=== PATIENT | female | born 1970 | race Caucasian/White ===

== ENCOUNTER 2018-05-04 20:53 | Inpatient (IN) | payer SELFPAY ==
[2018-05-04] MEDS ORDERED: ALPRAZolam 0.25 MG TAB PO ONE (21:11)
[2018-05-04] MEDS ORDERED: ONDANSETRON ODT 8 MG TAB SL ONE (21:12)
[2018-05-04] MEDS ORDERED: POTASSIUM CHLORIDE ELIXIR 20 MEQ/15 ML UD PO ONE (21:35)
[2018-05-04] MEDS ORDERED: KCL 40MEQ/NS 1,000 ML IVS ONE (21:36)
[2018-05-04] MEDS ORDERED: CYPROHEPTADINE HCL TAB 4 MG PO ONE (21:48)
--- NOTE | 2018-05-04 21:54 | RAD ---
ABDOMINAL SERIES WITH CHEST. 05/04/2018 CLINICAL HISTORY: Nausea and vomiting COMPARISON: None. TECHNIQUE: PA chest and two AP images of the abdomen. FINDINGS: Chest: Normal cardiac size. Normal cardiomediastinal contours. Normal pulmonary vascularity. Lungs are clear. Pleural spaces are clear. Unremarkable bony structures and soft tissues. ABDOMEN: There is scattered stool and air throughout the colon. There is no abnormal bowel dilatation to suggest ileus or obstruction. No free air. Surgical sutures in the right abdomen noted. Solid visceral organ shadows appear normal. Unremarkable bony structures. Pelvic phleboliths noted. IMPRESSION: 1. No acute chest disease. 2. No acute abdominal finding. Postoperative changes. Electronically signed by: Ros Raymundo DO 05/04/2018 9:51 PM [facility]
[2018-05-04] MEDS ORDERED: MAGNESIUM SULFATE PREMIX 2GM 2 GM in PREMIX BAG 1 BAG IVPB ONE (21:59)
[2018-05-04] MEDS ORDERED: MAGNESIUM SULFATE PREMIX 2GM 50 ML IVPB ONE (22:12)
--- NOTE | 2018-05-04 23:15 | ED.PDOC ---
History of Present Illness - General Chief Complaint: General Stated Complaint: weakness, dizzy, n/v Time Seen by Provider: 05/04/18 20:56 Source: patient Exam Limitations: no limitations - History of Present Illness Initial Comments: The patient is a 47-year-old female presenting to the emergency room secondary to one to 2 hours of intermittent nausea vomiting along with associated bilateral lower extremity cramping and tremulousness. She is mildly hyperreflexive in her lower extremities. No falls. No injuries. The patient does take omeprazole and Prozac and had a small bowel resection for volvulus 3-4 months ago. She denies any other [id number] medication use aside from something along the lines of NyQuil for sleep. She denies eating disorders or chronic laxative abuse or diarrhea. No real nausea or vomiting prior to this. No chest pain or shortness of breath. No palpitations. She denies any history of any recurrent electrolyte disorders. Apparently her primary care doctor has recently found some anemia which is currently being worked up. Timing/Duration: 1-3 hours Severity: moderate Improving Factors: nothing Worsening Factors: nothing Associated Symptoms: malaise, nausea/vomiting Allergies/Adverse Reactions: Allergies Sulfa Antibiotics Allergy (Verified 05/04/18 21:03) Home Medications: Ambulatory Orders Fluoxetine HCl [Prozac] 40 mg PO DAILY 05/04/18 Omeprazole [Prilosec Cap] 20 mg PO DAILY 05/04/18 Probiotic Product [Probiotic] 1 tab PO DAILY 05/04/18 Review of Systems - Review of Systems Constitutional: States: no symptoms reported EENTM: States: no symptoms reported Respiratory: States: no symptoms reported Cardiology: States: no symptoms reported Gastrointestinal/Abdominal: States: nausea, vomiting - 2 only Genitourinary: States: no symptoms reported Musculoskeletal: States: muscle pain Skin: States: no symptoms reported Neurological: States: tremors Endocrine: States: no symptoms reported All other Systems: No Change from Baseline Past Medical History (General) - Patient Medical History Hx of COPD: No Hx Cardiac Disorders: No Hx Congestive Heart Failure: No Hx Pacemaker: No Hx Diabetes: No Hx Gastroesophageal Reflux: No Hx Cancer: No Hx Hepatitis C: No Surgical History: appendectomy - Vaccination History Hx Tetanus, Diphtheria Vaccination: No Hx Influenza Vaccination: No Hx Pneumococcal Vaccination: No Immunizations Up to Date: No - Social History Hx Alcohol Use: No Hx Substance Use: No Hx Substance Use Treatment: No Hx Depression: Yes - Female History Patient is a Female of Child Bearing Age (10 -59 yrs old): Yes Family Medical History - Family History Mother Living Status: Still Living Hx Family Hypertension: Yes Physical Exam - Physical Exam General Appearance: Alert, Anxious Eye Exam: bilateral normal Ears, Nose, Throat: hearing grossly normal, normal ENT inspection, normal pharynx Neck: full range of motion, supple Respiratory: lungs clear, normal breath sounds, no respiratory distress, no accessory muscle use Cardiovascular/Chest: normal peripheral pulses, regular rate, rhythm, no edema Peripheral Pulses: radial,right: 2+, radial,left: 2+, dorsalis pedis,right: 2+, dorsalis pedis,left: 2+ Gastrointestinal/Abdominal: non tender, soft Rectal Exam: deferred Back Exam: no CVA tenderness, no vertebral tenderness Extremity: normal range of motion, no pedal edema, normal capillary refill 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 Increase clonus. Increased deep tendon reflexes lower extremities. Skin Exam: normal color Comments: Vital Signs - 24 hr 05/04/18 05/04/18 05/04/18 20:56 21:56 22:34 Temperature 97.3 F L Pulse Rate [ 94 H 88 86 monitor] Respiratory 20 16 18 Rate Blood Pressure 160/96 134/92 142/85 [RA] O2 Sat by Pulse 99 98 96 Oximetry Progress - Progress Progress: 05/04/18 23:18 the patient's a 47-year-old female presented to the emergency room secondary to a couple of episodes of nausea and vomiting with some associated tremor and muscle cramping of the lower extremities that started just a couple of hours prior to arrival. Workup has demonstrated her chronic anemia which was already known about as well as some hyponatremia hypochloremia and hypokalemia which is apparently new. Blood work is mildly hypoosmolar and urinary pH is alkalotic. ABG shows a pH at the upper limits of normal at 7.44 with a normal bicarbonate and PaCO2 level. The patient denies any ongoing GI losses in the form of diarrhea, laxative abuse, extended nausea and vomiting or eating disorder. no history of any known renal tubular acidosis. Symptoms demonstrated may simply be from the significant hypokalemia and hypomagnesemia. Given her use of the Prozac however mild serotonin syndrome is also on the differential and could also produce the hyponatremia and hypochloremia. She does take omeprazole which can also affect her electrolytes this way. Very mild rhabdomyolysis is likely due to the tremor. She does have an elevated QT interval which will need to be checked again after her potassium is corrected. Unfortunately she did receive a dose of Zofran before the lab work and EKG returned. It does not appear to have caused any additional problems however it should be avoided given the prolonged QT interval and hypokalemia. Certainly other possible etiologies for the electrolyte disturbances could include hyperaldosteronism, SIADH in combination with the omeprazole, or any malabsorption that could be ongoing related to her fairly recent bowel resection. Admit for continued telemetry monitoring and electrolyte correction. The patient did receive 1 dose of oral cyproheptadine in case this is contributed to by mild serotonin syndrome. Rhabdomyolysis appears to be mild and sodium bicarbonate has been avoided in treatment of that given the upper limits of normal pH. If this problem becomes a recurrent issue she may require significant additional laboratory and radiological testing to definitively pinned down the source. Obviously she is going to require some iron supplementation over time for her anemia. At this point she does not require any transfusion. No overt evidence of bleeding. admit for above reasons. - Results/Orders Results/Orders: EKG shows QT prolongation. Normal sinus rhythm at 95 bpm. Normal axis. Normal R-wave progression. No definitive ST segment changes or T wave changes consistent with acute ischemia. Laboratory Tests 05/04/18 05/04/18 05/04/18 21:00 21:12 21:12 WBC 10.9 H RBC 3.89 L Hgb 9.6 L Hct 29.6 L MCV 76.2 L MCH 24.7 L MCHC 32.4 L RDW 18.1 H Plt Count 305 MPV 8.3 Absolute Neuts (auto) 8.00 H Absolute Lymphs (auto) 1.80 Absolute Monos (auto) 1.00 H Absolute Eos (auto) 0.00 Absolute Basos (auto) 0.10 Neutrophils % 73.6 Lymphocytes % 16.1 L Monocytes % 9.3 H Eosinophils % 0.2 L Basophils % 0.8 RBC Morphology 1+hypochromia Sodium 130 L Potassium 2.8 L Chloride 91 L Carbon Dioxide 23 Anion Gap 18.8 H BUN 15 Creatinine 0.72 BUN/Creatinine Ratio 20.8 H Random Glucose 99 Serum Osmolality 261.7 L Calcium 8.6 Magnesium 1.7 L Total Bilirubin 1.0 AST 73 H ALT 24 Alkaline Phosphatase 92 Creatine Kinase 1536 H* CK-MB (CK-2) 16.6 H* CK-MB (CK-2) % 1.08 Troponin I < 0.02 B-Natriuretic Peptide 21.9 Serum Total Protein 7.6 Albumin 4.0 Globulin 3.6 H Albumin/Globulin Ratio 1.1 Amylase 123 H Lipase 31 TSH 5.28 Urine Color Urine Appearance Urine pH Ur Specific [place] Urine Protein Urine Glucose (UA) Urine Ketones Urine Blood Urine Nitrite Urine Bilirubin Urine Urobilinogen Ur Leukocyte Esterase Urine RBC Urine WBC Ur Epithelial Cells Urine Bacteria Urine HCG, Qual Negative 05/04/18 21:25 WBC RBC Hgb Hct MCV MCH MCHC RDW Plt Count MPV Absolute Neuts (auto) Absolute Lymphs (auto) Absolute Monos (auto) Absolute Eos (auto) Absolute Basos (auto) Neutrophils % Lymphocytes % Monocytes % Eosinophils % Basophils % RBC Morphology Sodium Potassium Chloride Carbon Dioxide Anion Gap BUN Creatinine BUN/Creatinine Ratio Random Glucose Serum Osmolality Calcium Magnesium Total Bilirubin AST ALT Alkaline Phosphatase Creatine Kinase CK-MB (CK-2) CK-MB (CK-2) % Troponin I B-Natriuretic Peptide Serum Total Protein Albumin Globulin Albumin/Globulin Ratio Amylase Lipase TSH Urine Color Straw Urine Appearance Clear Urine pH 8.5 H Ur Specific [place] 1.015 Urine Protein Negative Urine Glucose (UA) Negative Urine Ketones 15 H Urine Blood Negative Urine Nitrite Negative Urine Bilirubin Negative Urine Urobilinogen 0.2 Ur Leukocyte Esterase Negative Urine RBC 0-1 Urine WBC 0-1 Ur Epithelial Cells 1-3 Urine Bacteria Rare Urine HCG, Qual acute abdominal series is negative for any acute pathology. Departure - Departure Clinical Impression: Hyponatremia, Hypochloremia, Hypokalemia, Hypomagnesemia, Prolonged Q-T interval on ECG Rhabdomyolysis Qualifiers: Rhabdomyolysis type: non-traumatic Qualified Code(s): M62.82 - Rhabdomyolysis Disposition: Admit Patient Condition: Fair Departure Forms: ED Discharge - Pt. Copy, Patient Portal Self Enrollment Home Medications: Ambulatory Orders Fluoxetine HCl [Prozac] 40 mg PO DAILY 05/04/18 Omeprazole [Prilosec Cap] 20 mg PO DAILY 05/04/18 Probiotic Product [Probiotic] 1 tab PO DAILY 05/04/18 Decision To Admit - Decistion To Admit Decision to Admit Reason: Medical Nature Decision to Admit Date: 05/04/18 Decision to Admit Time: 23:27
[2018-05-05] MEDS ORDERED: SODIUM CHLORIDE 0.9% (FLUSH) 10 ML SYG IV PRN (00:12)
[2018-05-05] MEDS ORDERED: ONDANSETRON INJ 4 MG/2 ML VIAL IV PRN (00:12)
[2018-05-05] MEDS ORDERED: ACETAMINOPHEN 325 MG TAB PO PRN (00:12)
[2018-05-05] MEDS: KCL 20 MEQ/NS 1,000 ML IVS PRN ×2 (00:29→08:29)
[2018-05-05] MEDS ORDERED: ENOXAPARIN SODIUM 40 MG/0.4 ML SYG SUBCU SCH ×2 (00:30→21:00)
[2018-05-05] MEDS ORDERED: IV SET AND CAP CHANGE INJ INJ SCH (00:30)
[2018-05-05] MEDS ORDERED: PANTOPRAZOLE SODIUM IV 40 MG VIAL IV SCH ×2 (00:30→21:00)
[2018-05-05] MEDS ORDERED: BIFIDOBACTERIUM INFANTIS 4 MG CAP PO SCH (09:00)
[2018-05-05] MEDS ORDERED: FLUoxetine HCL 20 MG CAP PO SCH (09:00)
[2018-05-05] MEDS ORDERED: SODIUM CHLORIDE 0.9% (FLUSH) 10 ML SYG IV SCH ×2 (09:00→21:00)
[2018-05-05 15:03] VITALS: TEMP 98.6
[2018-05-05 18:26] VITALS: BP 131/84; O2SAT 99
--- NOTE | 2018-05-06 11:07 | SSS ---
SUPERVISING PHYSICIAN: Eldon Bateman MD DATE OF ADMISSION: 05/04/18 DATE OF DISCHARGE: 05/05/18 DISCHARGE DIAGNOSIS: 1. Rhabdomyolysis with admitting CPK of 1536. She has had decreased mobility since her colon resection in January of 2018. 2. Severe electrolyte imbalance with admitting potassium of 2.8, sodium 130, chloride 92, magnesium 1.7. 3. Nausea and vomiting secondary to gastroenteritis, contributing to #2. 4. Lower extremity leg cramping secondary to #2. 5. Gastroenteritis with abdominal pain with nausea, vomiting and poor appetite. 6. Gastroesophageal reflux disease. 7. Depression and anxiety. 8. History of volvulus with colon resection in January 2018. 9. Elevated liver function tests, particularly her AST. 10. Elevated amylase. 11. Borderline TSH of 5.28. 12. Anemia, microcytic and hypochromic in presentation. HISTORY OF PRESENT ILLNESS: This is a 47-year-old female patient who presented to the Emergency Room with nausea and vomiting that started one to two hours prior to her admission to the Emergency Room. She had associated bilateral lower extremity cramping and tremulousness. There were no falls, no injuries. The patient does have a history of gastroesophageal reflux disease, depression and anxiety and had a small bowel resection for a volvulus in January of 2018. She did say she has been very immobile since the surgery as she has had some minor complications after her surgery, most of that being her appetite is poor and she has not been eating as much as normal. In the Emergency Room, her initial vital signs were stable with a temperature of 97.3, heart rate 94, blood pressure 160/96, respiratory rate 20, O2 saturation 99% on room air. Her lab was drawn and she was found to have a sodium of 130, potassium 2.8, chloride 91, CO2 23, anion gap of 18.8, BUN 15, creatinine 0.72. Her serum osmolality is 261.7, magnesium 1.7. AST 73, creatinine kinase 1536. Troponin was negative. Amylase was 123. White count 10,900, hemoglobin 9.6, hematocrit 29.6. Blood gas showed pCO2 39, pO2 99, bicarb 26.1, PT 7.4, O2 saturation 98%. Urinalysis was unremarkable. Influenza A and B by PCR were both negative. Abdominal x-ray showed no acute chest disease, no acute abdominal findings, postoperative changes. I was called for admission. PAST MEDICAL HISTORY: 1. Depression and anxiety. 2. Hyperlipidemia. 3. Gastroesophageal reflux disease. 4. Kidney stones. 5. Volvulus. PAST SURGICAL HISTORY: 1. Colon resection for volvulus in January of 2018. OUTPATIENT MEDICATIONS: 1. Omeprazole. 2. Fluoxetine. 3. Probiotic. ALLERGIES: NO KNOWN DRUG ALLERGIES. FAMILY HISTORY: Positive for hypertension, renal stones, type 2 diabetes. SOCIAL HISTORY: She works at [employer]. She is . She has no children. She denies ETOH, tobacco or illicit drug use. REVIEW OF SYSTEMS: GENERAL: Positive for fatigue. Negative for fever or weight changes. HEENT: Negative for sinus symptoms, ear pain, vision changes or sore throat. RESPIRATORY: Negative for wheezing, coughing or shortness of breath. CARDIAC: Negative for chest pain, palpitations or tachycardia. GASTROINTESTINAL: As per history of present illness. GENITOURINARY: Negative for hematuria, dysuria or polyuria. MUSCULOSKELETAL: Positive for myalgias. Negative for arthralgias. SKIN: Negative for lesions or rashes. NEUROLOGIC: Positive for tremors. Negative for dizziness or seizures. EXTREMITIES: Positive for bilateral lower extremity weakness and muscle cramping. PHYSICAL EXAMINATION: VITAL SIGNS: Temperature 98.1. Pulse 68. Blood pressure 113/69. Respiratory rate 18. O2 saturation 99% on room air. GENERAL: This is a 47-year-old, thin female lying in her hospital bed. She is in no acute distress. HEENT: Normocephalic, atraumatic. Pupils are equal and reactive. Oropharynx is clear. NECK: Supple without mass. RESPIRATORY: Essentially clear to auscultation bilaterally. CHEST: There is equal rise and fall of the chest with inspiration and expiration. CARDIOVASCULAR: Regular rate and rhythm. GASTROINTESTINAL: Abdomen is soft, nontender. Bowel sounds are positive. EXTREMITIES: No cyanosis, clubbing or edema. She has normal range of motion. NEUROLOGIC: Awake, alert and oriented times three. Cranial nerves II-XII are grossly intact. It was reported that she had tremors of bilateral lower extremities in the Emergency Room, but that is resolved with electrolyte supplementation and fluids. SKIN: Warm and dry. LABORATORY: Her followup WBCs were 6.3 and 4.4. Hemoglobin and hematocrit were slightly low at 8.6 and 27.4. Followup electrolytes are basically within normal limits. Serial CPKs were done were 901 and on discharge were 586. RADIOLOGY: As per history of present illness. DISCHARGE PLAN: The patient will be discharged home in stable condition. She is to resume her previous diet and increase activity as tolerated. She is to followup with Dr. Andrews within one to two weeks for hospital followup. It is recommended at followup that she have a CMP to double check her elevated AST as well as her elevated amylase. She will also need a CBC since he presented with anemia. Her TSH was also borderline at 5.28. She is to return to the hospital or followup with Dr. Andrews for any problems or complications. #[id number] [facility]
== END 2018-05-05 18:15 | disposition home or self-care (01) | DRG 641 ==
LOC: ER 20:53 → MS 23:38
PROVIDERS: ADMIT Nurse Practitioner Acute Care; ATTEND Nurse Practitioner Acute Care
DX: E87.1 Hypo-osmolality and hyponatremia (principal); M62.81 Muscle weakness (generalized); E87.6 Hypokalemia; E83.42 Hypomagnesemia; R25.2 Cramp and spasm; K52.9 Noninfective gastroenteritis and colitis, unspecified; K21.9 Gastro-esophageal reflux disease without esophagitis; F41.8 Other specified anxiety disorders; R74.8 Abnormal levels of other serum enzymes; D50.9 Iron deficiency anemia, unspecified; Z90.49 Acquired absence of other specified parts of digestive tract; Z79.899 Other long term (current) drug therapy